=== PATIENT | female | born 1965 | race Caucasian/White ===

== ENCOUNTER → 2017-07-04 | Day surgery (SDC) | payer MEDICARE, MEDICAID ==
[~2017-07-04] VITALS: Ht 160 cm; Wt 120.2 kg
[~2017-07-04] MED LIST: ADVAIR 250/5028 PUFF IN; AMITRIPTYLINE 225 MG PO; APAP/OXYCODONE1 TA1 PO; APAP/OXYCODONE1 TA5 PO; AZELASTINE137 MCG/SP; BACTRIM DS 8001 TAB PO; CARBAMAZEPINE100 MG PO; CLINDAMYCIN HC300 MG PO; COZAAR50 MG OR; CYCLOBENZ5 MG PO; DILAUDID4 MG PO; DRISDOL50000 IU PO; ELAVIL GENERIC10 MG PO; ESTRACE 1MG TABL1 MG PO; FLOMAX 0.4MG C0.4 MG PO; FLONASE 50 MCG16 GM; HYDROCODONE BIT1 T45 PO; LISINOPRIL2.5 MG PO; LYRICA 100 MG100 MG PO; LYRICA150 M1 PO; LYRICA50 M1 PO; LYRICA75 MG PO; NORVASC 10MG. T10 MG PO; OMEPRAZOLE20 MG PO; PERCOCET1 TA1 PO; PERCOCET1 TAB PO; PHENERGAN 25MG.25 M1 PO; PREDNISONE1 MG PO; PYRIDIUM 200MG200 MG PO; SEPTRA DS 800 M1 TAB PO; SINGULAIR10 MG PO; TYLENOL/COD #41 EAC1 PO; VENTOLIN H0.09 MG/AC; WELLBUTRIN SR150 MG PO; ZOFRAN ODT4 MG PO
[2017-07-04 13:56] VITALS: BP 165/75
[2017-07-04 14:32] VITALS: BP 165/75
[2017-07-04 14:34] VITALS: BP 165/75
[2017-07-04 14:43] VITALS: BP 139/68
--- NOTE | 2017-07-04 14:58 | Procedure Note ---
Procedure detail Date of procedure: 07/04/17 Anesthesiologist: Mode Rivera Complications: None Pre-procedure diagnosis: RIGHT trigeminal neuralgia Post-procedure diagnosis: Same. Indications for procedure: Very pleasant 51-year-old white female the [facility] for RIGHT trigeminal ganglion block. Patient has been having RIGHT facial pain including RIGHT parietal pain. Patient presents for RIGHT trigeminal nerve block. Procedure detail: Details of the procedure expected to the patient. The patient was taken to procedure room and placed in the supine position. The area over the RIGHT maxilla was cleansed using chlorhexidine as cleansing solution. A marker was placed at this. Portion of the RIGHT mandibular condyle. Using a 25-gauge needle the RIGHT TMJ joint was accessed and the needle was inserted until contact was made with the pterygoid plate. After negative aspiration. 1 mL of 1 percent lidocaine +40 mg of Depo-Medrol was injected. Patient tolerated procedure without difficulty. There were no complications. Plan and disposition: Patient was reevaluated at 10 and 20 minutes post procedure. She is doing very well. She reports her pain has subsided by 90 percent. at [id number]
== END ==
LOC: PM 13:42
DX: G50.0 Trigeminal neuralgia (principal)
CPT/HCPCS: J1030